=== PATIENT | female | born 1985 | race American Indian/Alaskan Native ===

== ENCOUNTER 2020-12-05 17:30 | Emergency (ER) | payer MEDICAID ==
[2020-12-05 18:00] VITALS: BP 128/64; PULSE 100
--- NOTE | 2020-12-05 19:05 | CR ---
PROCEDURE INFORMATION: Exam: XR Right Shoulder Exam date and time: 12/05/2020 6:46 PM Age: 34 years old Clinical indication: Other: Fall/pain; Additional info: Slipped on ice and fell onto shoulder TECHNIQUE: Imaging protocol: XR Right shoulder. Views: 2 or more views. Total images: 3 COMPARISON: No relevant prior studies available. FINDINGS: Bones/joints: The distal right clavicle is high riding with respect to the acromion. Glenohumeral joint intact. Single view of the left shoulder for comparison provided. Soft tissues: Normal. IMPRESSION: 1. Findings suggest right AC joint dislocation. 2. No fracture.
--- NOTE | 2020-12-05 19:23 | EDM.PDOC ---
ED HPI GENERAL MEDICAL PROBLEM - General Chief Complaint: Upper Extremity Injury/Pain Stated Complaint: FELL HURT RIGHT SHOULDER Time Seen by Provider: 12/05/20 19:18 Source of Information: Reports: Patient - History of Present Illness INITIAL COMMENTS - FREE TEXT/NARRATIVE: Patient is here for right shoulder pain. She slipped on the ice walking up a hill to her dad's house when she slipped and landed on her right shoulder. she noted pain right away. This occurred about 30 minutes prior to arrival. No numbness or tingling in the hand. Onset: Today Location: Reports: Upper Extremity, Right Quality: Reports: Ache, Sharp, Throbbing Severity: Severe Improves with: Reports: Immobilization, Rest Worsens with: Reports: Movement Context: Reports: Trauma Right Shoulder Pain Score (Numeric/FACES): 6 - Related Data Allergies Allergy/AdvReac Type Severity Reaction Status Date / Time No Known Allergies Allergy Verified 12/05/20 18:00 Home Meds: Home Meds Ibuprofen [Motrin] 800 mg PO Q8H PRN #30 tablet 08/23/15 [Rx] Acetaminophen [Tylenol] 1,000 mg PO Q6H PRN 12/05/20 [History] Past Medical History - Past Health History Medical/Surgical History: Denies Medical/Surgical History Other HEENT History: dental caries Cardiovascular History: Reports: None Respiratory History: Reports: None Other Gastrointestinal History: constipation c/ Genitourinary History: Reports: None Other PHARMACY LABORATORY TECHNICIAN History: Hx of Pre-eclampsia c/1st Other Musculoskeletal History: scoliosis. 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 Is to be having f/up Hematologic History: Reports: None Other Immunologic History: rubella non-immune Oncologic (Cancer) History: Reports: None Dermatologic History: Reports: None - Infectious Disease History Infectious Disease History: Reports: None Social & Family History - Tobacco Use Tobacco Use Status *Q: Current Every Day Tobacco User Years of Tobacco use: 18 Packs/Tins Daily: 0.5 Second Hand Smoke Exposure: No - Caffeine Use Caffeine Use: Reports: Coffee, Soda - Recreational Drug Use Recreational Drug Use: No Review of Systems - Review of Systems Review Of Systems: Comprehensive ROS is negative, except as noted in HPI. ED EXAM, GENERAL - Physical Exam Exam: See Below Exam Limited By: No Limitations General Appearance: Alert, WD/WN, No Apparent Distress Ears: Normal External Exam Head: Atraumatic, Normocephalic Neck: Normal Inspection, Non-Tender, Full Range of Motion Respiratory/Chest: No Respiratory Distress, Lungs Clear, No Accessory Muscle Use Cardiovascular: Normal Peripheral Pulses, Regular Rate, Rhythm GI/Abdominal: Soft, No Distention Extremities: Normal Capillary Refill, Other (right shoulder with palpable AC separation and visible deformity compared with left) Neurological: Alert, Oriented, Normal Cognition, No Motor/Sensory Deficits Psychiatric: Normal Affect, Normal Mood Skin Exam: Warm, Dry, Intact, Normal Color, No Rash Course - Vital Signs Last Recorded V/S: Last Vital Signs Temp 98.2 F 12/05/20 17:54 Pulse 100 12/05/20 17:54 Resp 16 12/05/20 17:54 BP 128/64 12/05/20 17:54 Pulse Ox 100 12/05/20 17:54 Departure - Departure Time of Disposition: 19:24 Disposition: Home, Self-Care 01 Condition: Good Clinical Impression: Acromioclavicular joint separation Qualifiers: Encounter type: initial encounter Laterality: right Qualified Code(s): S43.101A - Unspecified dislocation of right acromioclavicular joint, initial encounter - Discharge Information *PRESCRIPTION DRUG MONITORING PROGRAM REVIEWED*: Not Applicable *COPY OF PRESCRIPTION DRUG MONITORING REPORT IN PATIENT NU: Not Applicable Instructions: How To Use a Sling, [id number], Acromioclavicular Separation Additional Instructions: Sling provided for comfort, wear for at least 1-2 weeks Ice therapy to help pain and inflammation Tylenol and ibuprofen as needed for pain Follow up with primary care provider in 3-5 days Sepsis Event Note (ED) - Evaluation Sepsis Screening Result: No Definite Risk - Focused Exam Vital Signs: Vital Signs Temp Pulse Resp BP Pulse Ox 12/05/20 17:54 98.2 F 100 16 128/64 100
== END 2020-12-05 19:37 | disposition home or self-care (01) ==
LOC: DL.ED 17:30
DX: S43.101A Unspecified dislocation of right acromioclavicular joint, initial encounter (principal); Z72.0 Tobacco use; W00.0XXA Fall on same level due to ice and snow, initial encounter; Y93.01 Activity, walking, marching and hiking; Y92.828 Other wilderness area as the place of occurrence of the external cause
CPT/HCPCS: 73030-RT; 99283; 99283-25